=== PATIENT | female | born 2000 | race Two or more races ===

== ENCOUNTER 2024-07-18 11:39 | Outpatient (CLI) | payer MEDICAID, SELFPAY ==
[2024-07-18] VITALS (7 sets, daily range): BP systolic 110–112; BP diastolic 59–65; PULSE 106–113; O2SAT 97–99; BMI 29.6
--- NOTE | 2024-07-18 12:15 | XR_ITS ---
Examination: Biophysical profile, ultrasound Date and time of exam: July 18, 2024 1307 hours INDICATIONS: Decreased movement today Technique: Multiple transabdominal sonographic images of the pelvis abdomen obtained. Attention is directed to the breathing movement, gross body movement, amniotic fluid volume and tone. Findings: Amniotic fluid index 8.5 cm Total biophysical profile is 8 of 8. breathing movement is 2. Gross body movement is 2. tone is 2. Qualitative amniotic fluid volume is 2 Impression: Biophysical profile is 8 of 8.
== END 2024-07-18 15:00 | disposition home or self-care (01) ==
LOC: S4S1 11:40 → S4SX 11:41
PROVIDERS: Referring Provider Specialist; Visit Provider Specialist
DX: O36.8130 Decreased fetal movements, third trimester, not applicable or unspecified (principal); Z3A.38 38 weeks gestation of pregnancy
CPT/HCPCS: 59025; 76819

== ENCOUNTER 2024-07-21 05:37 | Inpatient (IN) | payer MEDICAID, SELFPAY ==
--- NOTE | 2024-07-14 12:45 | ESHP_ITS ---
RE: ROMEO BENNETT : 2000 DATE OF ADMISSION: 07/21/2024 HISTORY OF PRESENT ILLNESS: This is a 24-year-old 2, para 1-0-0-1 with due date of 07/28/2024 with intrauterine at 39 weeks on 07/21/2024, who presents for repeat delivery. The patient's care was complicated by anxiety disorder and sinus tachycardia for which the patient takes BuSpar and a beta-isauro in the form of metoprolol at 25 mg once a day. She has been seen by a coroner transport technician during her with no significant arrhythmia noted. She also has a history of elevated blood pressures in the office, but her home blood pressures are normal. She is not on any medication for blood pressure. She reports normal movement. She denies any leaking or bleeding. She has occasional contractions. ALLERGIES: NO KNOWN DRUG ALLERGIES. MEDICATIONS: 1. Metoprolol succinate ER 25 mg one p.o. daily. 2. Buspirone 5 mg one p.o. b.i.d. 3. Ferrous sulfate 325 mg one p.o. b.i.d. 4. vitamin 1 p.o. daily. PAST MEDICAL HISTORY: Anxiety disorder, inappropriate sinus tachycardia, endometriosis, white coat hypertension, rubella non-immune, diastasis recti, iron deficiency anemia. SOCIAL HISTORY: She denies any alcohol, drug use, or smoking. FAMILY HISTORY: Mother has diabetes and hypertension. OBSTETRIC HISTORY: On 07/26/2019, 40 weeks of serine delivery, 8 pound 1 ounce male for breech presentation. PAST SURGICAL HISTORY: 2019. REVIEW OF SYSTEMS: She denies any chest pain, palpitations, cough, fever, shortness of breath, or lower extremity pain. She denies any headache, change in vision, or right upper quadrant pain. PHYSICAL EXAMINATION: VITAL SIGNS: Blood pressure 138/72, heart rate 88, respirations 18, temperature 98.6. HEENT: Oropharynx and sclerae are clear. LUNGS: Clear to auscultation bilaterally. HEART: Regular rate and rhythm. ABDOMEN: Old Pfannenstiel scar noted. EXTREMITIES: Nontender. SKIN: No gross rashes or lesions. NEUROLOGIC: No focal deficits. ASSESSMENT: Intrauterine at 39 weeks. Previous delivery, elects to repeat delivery. PLAN: Repeat delivery. Informed consent was obtained. The patient has been made aware of the risks, complications, alternatives, and benefits of the proposed procedure and she agrees. DT: 12:24:08 TT: 12:44:00 Ref: [id number] - TID: [id number] MTDD
[2024-07-20 11:18] LABS: Basophils % (Auto) 0 % (0-2.5); Eosinophils # (Auto) 0.1 Thou/mm3 (0.0-0.5); Eosinophils % (Auto) 1 % (0-10); Hematocrit 38.6 % (36.0-46.0); Hemoglobin 12.7 g/dL (12.0-16.0); Immature Granulocytes % (Auto) 1 % (0-0); Immature Granulocytes Auto 0.08 Thou/mm3 (0.00-0.00); Lymphocytes # (Auto) 2.2 Thou/mm3 (1.0-4.8); Lymphocytes % (Auto) 17 % (10-50); Mean Corpuscular HGB Conc 32.9 g/dl (31.0-37.0); Mean Corpuscular Hemoglobin 29.9 pg (25.0-35.0); Mean Corpuscular Volume 91 fL (80-100); Monocytes # (Auto) 0.6 Thou/mm3 (0.0-0.8); Monocytes % (Auto) 5 % (0-12); Neutrophils # (Auto) 10.2 Thou/mm3 (1.8-7.7); Neutrophils % (Auto) 77 % (37-80); Nucleated Red Blood Cell % 0 /100 WBC (0); Platelet Count 211 Thou/mm3 (140-440); RDW Standard Deviation 45.1 fL (36.4-46.3); Red Blood Count 4.25 Miln/mm3 (4.00-5.20); White Blood Count 13.2 Thou/mm3 (3.6-11.0)
[2024-07-20 11:50] LABS: Alanine Aminotransferase 9 U/L (10-49); Albumin, Serum 4.3 gm/dL (3.5-5.0); Albumin/Globulin Ratio 1.8 (1.2-2.2); Alkaline Phosphatase 214 U/L (46-116); Anion Gap 10 (7-16); Aspartate Amino Transferase 13 U/L (0-34); BUN/Creatinine Ratio 14 Ratio (12-20); Bilirubin,Total 0.4 mg/dL (0.3-1.2); Blood Urea Nitrogen 7 mg/dL (9-23); Calcium 9.7 mg/dL (8.3-10.6); Calcium (Corrected) 9.7 mg/dL (8.5-10.1); Carbon Dioxide 23.8 mMol/L (20.0-31.0); Chloride 103 mMol/L (98-107); Creatinine (Component) 0.5 mg/dL (0.6-1.3); Globulin 2.4 gm/dL (2.3-3.5); Glucose 86 mg/dL (74-106); Osmolality,Calculated 270 (275-295); Potassium 3.9 mMol/L (3.4-5.1); Sodium 137 mMol/L (136-145); Total Protein 6.7 gm/dL (5.7-8.2); eGFR > 60 See Note
[2024-07-20 11:53] LABS: Syphilis Nonreactive (Nonreactive)
[2024-07-20 12:43] LABS: INR 0.9 (0.9-1.3); Partial Thromboplastin Time 23.6 Seconds (22.0-36.0)
[2024-07-21] VITALS (17 sets, daily range): BP systolic 98–133; BP diastolic 55–89; PULSE 78–115; RESP 10–19; TEMP 36.4–37.1; O2SAT 97–100; BMI 29.4
[2024-07-21] MEDS: CITRIC ACID/SODIUM CITR 15 ML UDC (BICITRA) 30 ML PO (07:09)
[2024-07-21] MEDS: ceFAZolin/D5W 2 GM IV 2 GM/100 ML BAG IV (07:09)
[2024-07-21] MEDS: FAMOTIDINE INJ 10 MG/ML VIAL 2 ML 20 MG IV (07:09)
--- NOTE | 2024-07-21 08:32 | PD.LDDELS ---
Data ([facility]) Data Hx Section: Yes (X1) : 2 Para: 1 Term: 1 : 0 : 0 Delivery Data ([facility]) Labor Data ROM Date: 07/21/24 ROM Time: 08:06 Rupture Type: AROM Amniotic Fluid: Clear Delivery Data EDC: 07/28/24 EDC calculated by:: LMP/early US confirmation Labor Onset Stage 1 Date: 07/21/24 Labor Onset Stage 1 Time: 08:06 Labor Onset Stage 2 Date: 07/21/24 Labor Onset Stage 2 Time: 08:06 Delivery Date: 07/21/24 Delivery Time: 08:06 Gestational age (weeks): 39 Gestational age (days): 0 Placenta Delivery Date: 07/21/24 Placenta Delivery Time: 08:07 Delivered by: Jose Sethi Delivery nurse: Shavon Rodriguez Other staff at delivery: Nursery Nurse Other staff at delivery: MESHA Other staff at delivery: Reva Wellington Other staff at delivery: Chirag More Delivery Method Delivery: Delivery Type: Repeat Presentation: Vertex Position: OA Anesthesia Type Primary Anesthesia: Spinal Placenta Placenta Delivery: Manual Placenta Cultures Obtained: No Placenta Sent for Examination: No Cord Sample: Cord Blood Obtained EBL Estimated blood loss (ml): 600 Additional Procedures None Complications Complications: Uterine atony Data ([facility]) [place] Data Gender: Male Infant Weight Grams: 2995 1 Minute Total: 9 5 Minute Total: 9
--- NOTE | 2024-07-21 08:36 | PD.LDDS ---
DS: Providers Provider Date of admission: 07/21/24 05:37 Primary care physician: Masood Kulkarni MD Admitting Provider: Jose Sethi MD Attending Provider on Admission: Jose Sethi MD Attending Provider on DC: Jose Sethi MD Discharging Provider: Jose Sethi MD DS: Diagnosis Problem List Completed Was Problem List Reviewed/Reconciled?: Yes Summary/Hosp Course Peripartum Data Procedures: Procedures Operation Date: 07/21/24 07:45 <No data on this case meets the specified criteria> Time Spent with Patient Time attestation: Total time spent providing and/or coordinating discharge services: Exam Vital Signs Pulse BP Pulse Ox 93 131/72 H 100 07/21/24 07:36 07/21/24 07:36 07/21/24 07:36 Discharge Plan Plan Patient Disposition: HOME (Self Care) Patient condition on transfer: Stable Prescriptions/Referrals Prescriptions/Med Rec: New ibuprofen 600 mg tablet 600 mg PO Q6H PRN (Reason: pain) Qty: 30 0RF Continued PNV cmb#95-ferrous fumarate-FA [] 28 mg iron- 800 mcg Tablet 1 tab PO QDAY buspirone 5 mg tablet 5 mg PO BID metoprolol succinate 25 mg capsule,sprinkle,ER 24hr 25 mg PO QDAY Qty: 30 6RF Discontinued ferrous sulfate 325 mg (65 mg iron) tablet 325 mg PO BID Qty: 60 5RF Referrals: Masood Kulkarni MD [Primary Care Provider] - Patient/Caregiver Discharge Instructions Discharge Activity: activity as tolerated Other Discharge Activity Instructions:: Follow up office 1 week Education Materials: Pain After Childbirth, Storing Expressed Milk, Breast Care After , : Caring for Yourself, C Section Dc Print Language: [place] Stand Alone Forms: Melissa Award Info., Patient Portal Info Letter Discharge Order Discharge Orders: Discharge (Routine); Ordered 07/23/24 Ordered By: Jose Sethi Planned Discharge Date 07/23/24
[2024-07-21] MEDS: DIPHENOXYLATE/ATROP SULF 1 TAB PO (08:57)
[2024-07-21] MEDS: KETOROLAC INJ 30 MG/ML VIAL IVP (10:40)
--- NOTE | 2024-07-21 12:21 | ESOP_ITS ---
RE: ROMEO BENNETT : 2000 DATE OF OPERATION: 07/21/2024 PREOPERATIVE DIAGNOSES: 1. Intrauterine at 39 weeks. 2. Previous delivery, elects repeat delivery. POSTOPERATIVE DIAGNOSES: 1. Intrauterine at 39 weeks. 2. Previous delivery, elects repeat delivery. 3. Endometriosis. PROCEDURE PERFORMED: Repeat low transverse section via Pfannenstiel skin incision. SURGEON: Jose Sethi DO PRODUCTION CORRUGATOR: SAMSON Gao ANESTHESIA: Spinal. ANESTHESIOLOGIST: Radha More CRNA ESTIMATED BLOOD LOSS: 600 mL COMPLICATIONS: Uterine atony. FINDINGS: A live male . Cephalic presentation. Clear amniotic fluid. Apgars 9 and 9. weight 2995 grams. Clear amniotic fluid. Superficial endometriotic implants on both ovaries and uterosacral ligaments. Placenta removed completely and intact. Uterus initially atonic but responded to uterotonics. DESCRIPTION OF PROCEDURE: After proper informed consent was obtained and the patient was made aware of the risks, complications, alternatives, benefits of the proposed procedure, she was taken to the operating room where she underwent induction of spinal anesthesia. She was placed in the dorsal supine position. She was prepped and draped in the usual sterile fashion. A time-out was performed. Pfannenstiel skin incision was made with scalpel carried through to the underlying layer of fascia with the Bovie. The fascia was nicked in the midline. Incision was extended bilaterally with the Bovie. The inferior aspect of the fascial incision was grasped with Nereida clamps and elevated. The underlying rectus muscle was dissected off with the Bovie. The rectus muscles were in the midline. The peritoneum was identified between two Otero clamps and entered sharply with the Metzenbaum scissors. The incision was extended superiorly and inferiorly with good visualization of the bladder. The bladder blade was then inserted. The vesicouterine peritoneum was incised transversely and bladder flap carried digitally. The bladder blade was reinserted. The low uterine segment was incised in the transverse fashion with scalpel. The incision was extended bilaterally and digitally. The infants head delivered. The mouth and nose were suctioned with bulb suction. Shoulder and body delivered atraumatically. The cord was clamped and cut and the sent out to waiting pediatric staff. Cord blood gases were sent. The placenta was then removed manually. The uterus exteriorized and cleared of all clots and debris. The uterus incision was repaired with 1-0 chromic suture in a running locking fashion. A second layer of same suture was used to imbricate the first layer and obtained excellent hemostasis. The vesicouterine peritoneum was closed with 2-0 chromic suture in running fashion. The uterus was atonic, but she responded to uterotonics. The fundus was firm. The gutters were cleared of all clots and debris and the peritoneum closed with 0 chromic catgut suture in running fashion. The muscle was closed with 0 chromic catgut suture in running fashion. The subfascial layer was found to be hemostatic and the fascia was closed with 0 Vicryl beginning at each angle and ending centered in a running fashion. Subcutaneous tissue was closed with 2-0 chromic catgut suture in a running fashion. Skin was closed with 4-0 Monocryl. Dermabond Prineo dressing was applied. Sterile pressure dressing was applied. She tolerated the procedure well. Counts were correct. Fundus was firm at the end of the procedure. She was hemodynamically stable. She was transferred to recovery room in stable condition. I discussed with the patient, the nature of her condition, the intraoperative findings, and expectation for recovery. All questions answered. DT: 08:35:04 TT: 12:20:00 Ref: [id number] - TID: [id number]
[2024-07-21 13:32] LABS: Basophils % (Auto) 0 % (0-2.5); Eosinophils % (Auto) 0 % (0-10); Hematocrit 37.1 % (36.0-46.0); Hemoglobin 12.4 g/dL (12.0-16.0); Immature Granulocytes % (Auto) 1 % (0-0); Immature Granulocytes Auto 0.09 Thou/mm3 (0.00-0.00); Lymphocytes # (Auto) 1.1 Thou/mm3 (1.0-4.8); Lymphocytes % (Auto) 6 % (10-50); Mean Corpuscular HGB Conc 33.4 g/dl (31.0-37.0); Mean Corpuscular Hemoglobin 30.2 pg (25.0-35.0); Mean Corpuscular Volume 90 fL (80-100); Monocytes # (Auto) 0.3 Thou/mm3 (0.0-0.8); Monocytes % (Auto) 1 % (0-12); Neutrophils # (Auto) 17.4 Thou/mm3 (1.8-7.7); Neutrophils % (Auto) 92 % (37-80); Nucleated Red Blood Cell % 0 /100 WBC (0); Platelet Count 217 Thou/mm3 (140-440); RDW Standard Deviation 43.9 fL (36.4-46.3); Red Blood Count 4.11 Miln/mm3 (4.00-5.20); White Blood Count 18.9 Thou/mm3 (3.6-11.0)
[2024-07-21] MEDS: OXYTOCIN in NS 20 units 20 UNIT/1,000 ML BAG 125 UNIT IV (14:09)
[2024-07-21] MEDS: ONDANSETRON INJ 2 MG/ML INJ 2 ML 4 MG IV (14:09)
[2024-07-21] MEDS: HYDROcodone/APAP 5/325 TABLET 2 TAB PO (19:46)
[2024-07-21] MEDS: BusPIRone HCL 5 MG TABLET PO (21:59)
[2024-07-22] VITALS (7 sets, daily range): BP systolic 104–113; BP diastolic 66–75; PULSE 80–96; RESP 15–18; TEMP 36.7–36.8; O2SAT 97–98
[2024-07-22] MEDS: IBUPROFEN TAB 400 MG TABLET 800 MG PO ×2 (05:40→14:25)
[2024-07-22] MEDS: HYDROcodone/APAP 5/325 TABLET 2 TAB PO ×3 (07:42→21:16)
[2024-07-22] MEDS: Milk Of Magnesia Susp 30 ML UDC PO (08:52)
[2024-07-22] MEDS: METOPROLOL SUCCINATE XL 25 MG TABCR PO (08:52)
[2024-07-22] MEDS: BusPIRone HCL 5 MG TABLET PO ×2 (08:53→21:15)
--- NOTE | 2024-07-22 09:39 | ESPR_ITS ---
RE: ROMEO BENNETT : 2000 DATE OF SERVICE: 07/22/2024 SUBJECTIVE: Postop day #1, the patient denies any problems or complaints. She is voiding. She is ambulating. She is tolerating diet. She is passing flatus. She denies any excessive vaginal bleeding. She denies any dizziness or lightheadedness. She denies any chest pain, palpitations, or shortness of breath or lower extremity pain. OBJECTIVE: Vitals Signs: Blood pressure 104/66, heart rate 91, respirations 15, temperature 98.1, pulse oximetry 97% on room air. Lungs: Clear to auscultation bilaterally. Heart: Regular rate and rhythm. Abdomen: Fundus is firm. Dressing is dry and intact. Extremities: Nontender. LABORATORY DATA: Hemoglobin pre-delivery is 12.7, post delivery is 12.4. ASSESSMENT: Postop day #1 status post delivery. PLAN: Remove dressing, discontinue IV, encourage ambulation, support, possible discharge home tomorrow. DT: 07:43:54 TT: 09:38:00 Ref: [id number] - TID: [id number]
[2024-07-23] VITALS: BP 109/70; PULSE 84; RESP 17; TEMP 36.8; O2SAT 98
[2024-07-23] MEDS: HYDROcodone/APAP 5/325 TABLET 2 TAB PO (03:37)
[2024-07-23 03:53] VITALS: BP 110/69; PULSE 100; RESP 18; TEMP 36.8; O2SAT 98
--- NOTE | 2024-07-23 03:55 | PC.NURSE ---
07/23/24 0345: pt educated on importance of walking frequently. Pain medication administered.
[2024-07-23] MEDS: HYDROcodone/APAP 5/325 TABLET 1 TAB PO (08:17)
[2024-07-23 08:18] VITALS: BP 117/79; PULSE 104
[2024-07-23] MEDS: BusPIRone HCL 5 MG TABLET PO ×2 (08:18)
[2024-07-23] MEDS: METOPROLOL SUCCINATE XL 25 MG TABCR PO (08:18)
--- NOTE | 2024-07-23 08:34 | ESPR_ITS ---
RE: ROMEO BENNETT : 2000 DATE OF SERVICE: 07/23/2024 SUBJECTIVE: Postoperative day #2, the patient denies any problem or complaint. She is voiding. She is ambulating. She is tolerating diet. She is passing flatus. She denies any excessive vaginal bleeding. She denies any dizziness or lightheadedness. She denies any chest pain, palpitations, shortness of breath, or lower extremity pain. OBJECTIVE: Vital Signs: Blood pressure 110/69, heart rate 100, respirations 18, temperature 98.2, pulse oximetry is 98% on room air. Lungs: Clear to auscultation bilaterally. Heart: Regular rate and rhythm. Abdomen: Fundus is firm. Incision clean and intact. Extremities: Nontender. ASSESSMENT: Postop day #2, status post delivery. PLAN: Continue beta-isauro for inappropriate sinus tachycardia. Follow up in the office in one week. Discharge instructions were given. DT: 08:18:11 TT: 08:33:00 Ref: [id number] - TID: [id number]
--- NOTE | 2024-07-23 11:32 | PC.SS ---
COMBINATION MACHINE TENDERMirian, met with patient [id number] to do initial assessment due to suffering from anxiety. COMBINATION MACHINE TENDER introduced herself, role in the agency, reason for visit, and discussed limits of confidentiality. Patient appeared alert and oriented to self, time, place, and situation. Patient appears stated age. Patient made good eye contact. Patient?s attitude appeared pleasant and cooperative. Patient?s behavior appeared ordinary. Patient?s mood appears ordinary. No signs of delusions or hallucinations. This is 24-year-old, , single female who presented to the hospital to deliver her . Patient was able to verify her address and phone number. Patient reported that she resides at home with her significant other, Kael. Patient is independent with all her ADLs, no DME use. Patient is employed by [employer]. Patient reported being diagnosed anxiety. Patient denies any history of suicide attempts, 5150 holds. Patient denied any current substance use. Patient declined any involvement with CWS. Patient declined any domestic violence at home. Patient reports feeling happy and excited to return home. Patient reports having all the equipment for the baby. Patient reported having her own vehicle for transportation. Patient reported that her fianceKael is her main support system. Patient will discharge home when medically clear. Patient declined any resources for counseling. YOSEF discussed with patient Post Depression, as well as symptoms.
== END 2024-07-23 11:55 | disposition home or self-care (01) | DRG 540 ==
LOC: S4SX 05:44 → S4NX 08:11
PROVIDERS: Admitting Provider Specialist; PCP Family Medicine; Visit Provider Specialist
PROC: 10D00Z1 Extraction of Products of Conception, Low, Open Approach (ICD-10-PCS; CPT 59514; principal; 2024-07-21 07:30)
DX: O34.211 Maternal care for low transverse scar from previous cesarean delivery (principal); O62.2 Other uterine inertia; Z37.0 Single live birth; Z3A.39 39 weeks gestation of pregnancy; O99.344 Other mental disorders complicating childbirth; F41.9 Anxiety disorder, unspecified; O99.42 Diseases of the circulatory system complicating childbirth; I47.11 Inappropriate sinus tachycardia, so stated; N80.103 Endometriosis of bilateral ovaries, unspecified depth; N80.8 Other endometriosis; O34.83 Maternal care for other abnormalities of pelvic organs, third trimester
CPT/HCPCS: 36415; 80053; 85025; 85610; 85730; 86780; 86850; 86900; 86901; A4649; J0689; J1100; J1885; J2250; J2274; J2371; J2405; J2590; J3010; J3490; S0191; A9270; J0690; J2270

== ENCOUNTER 2025-01-19 19:34 | Emergency (ER) | payer MEDICAID, SELFPAY ==
[2025-01-19 19:36] VITALS: BMI 20.9
--- NOTE | 2025-01-19 19:42 | EKG_ITS ---
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
[2025-01-19 19:49] VITALS: BP 150/95; PULSE 143; RESP 16; TEMP 38.1; O2SAT 98
--- NOTE | 2025-01-19 20:05 | XR_ITS ---
Examination: PA lateral chest 2 views Technique upright PA lateral chest 2 views Date and time: January 19, 20252022 hours INDICATIONS: Cardiac palpitations beginning 5:00 PM today fever coughing 3 days. FINDINGS: Normal heart size Lungs are clear No pneumonia or pulmonary edema Intact osseous structures IMPRESSION: No pneumonia or pulmonary edema
--- NOTE | 2025-01-19 20:06 | PD.EDARRY ---
ED Arrhythmia Palp. RME/HPI General Chief Complaint: Arrhythmia/Palpitations Stated Complaint: PALPITATIONS Time Seen by Provider: 01/19/25 20:01 Source: patient Arrival date/time: 01/19/25 19:34 74-year-old female with no known medical history presents to the emergency room with a chief complaint of palpitations, fevers, coughing, shortness of breath x 3 days Mode of arrival: ambulatory Limitations: no limitations Related Data Home Medications ?Medication ?Instructions ?Recorded ?Confirmed vit no.95-ferrous 1 tab PO QDAY 07/26/19 07/21/24 fumarate 28 mg-folic acid 800 mcg tablet () buspirone 5 mg tablet 5 mg PO BID anxiety 07/21/24 07/21/24 Previous Rx's ?Medication ?Instructions ?Recorded metoprolol succinate 25 mg capsule 25 mg PO QDAY #30 ea 04/19/24 sprinkle, ext. release 24 hr ibuprofen 600 mg tablet 600 mg PO Q6H PRN pain #30 tabs 07/21/24 Allergies Allergy/AdvReac Type Severity Reaction Status Date / Time No Known Allergies Allergy Verified 01/19/25 19:41 ED Exam General Limitations: Present no limitations Course Orders Category Date Time Status Bedside COVID-19 Antigen Test NOW Care 01/19/25 20:05 Active Bedside Influenza A&B Antigen Test NOW Care 01/19/25 20:05 Active EKG (ED ONLY) *Do not use* NOW Care 01/19/25 19:42 Completed Insert IV STAT Care 01/19/25 20:05 Active EKG (ED Only) Stat Exams 01/19/25 19:42 Draft XR chest 2V Stat Exams 01/19/25 20:05 Ordered BNP [B-Type Natriuretic Peptide] Stat Lab 01/19/25 20:06 Ordered Blood Culture (Lab) Stat Lab 01/19/25 20:05 Ordered CBC Stat Lab 01/19/25 20:05 Ordered CMP [Comprehensive Metabolic Panel] Stat Lab 01/19/25 20:05 Ordered Lactate (Lactic Acid) Stat Lab 01/19/25 20:05 Ordered Procalcitonin Stat Lab 01/19/25 20:05 Ordered Troponin I Stat Lab 01/19/25 20:05 Ordered UA [Urinalysis] Stat Lab 01/19/25 20:05 Ordered Urine Culture Stat Lab 01/19/25 20:05 Ordered Sodium Chloride 0.9% 1000 ml [Ns] 1,779 ml Med 01/19/25 20:05 Ordered IV 1,779 mls/hr Vital Signs Vital signs: Vital Signs Temperature 100.5 F H 01/19/25 19:49 Pulse Rate 143 H 01/19/25 19:49 Respiratory Rate 16 01/19/25 19:49 Blood Pressure 150/95 H 01/19/25 19:49 Pulse Oximetry (%) 98 01/19/25 19:49 Oxygen Delivery Method Room Air 01/19/25 19:49 Arrhythmia/Palpitations Medications / Prescriptions Medication administrations:: Medication Administration History Sodium Chloride (Ns) 1,779 mls @ 1,779 mls/hr 30 ml/kg infuse over 60 min (1779 ml) IV .Q1H ONE Stop: 01/19/25 21:04 Discharge Plan Prescriptions/Referrals Prescriptions/Med Rec: No Action PNV cmb#95-ferrous fumarate-FA [] 28 mg iron- 800 mcg Tablet 1 tab PO QDAY buspirone 5 mg tablet 5 mg PO BID ibuprofen 600 mg tablet 600 mg PO Q6H PRN (Reason: pain) Qty: 30 0RF metoprolol succinate 25 mg capsule,sprinkle,ER 24hr 25 mg PO QDAY Qty: 30 6RF Patient/Caregiver Discharge Instructions Print Language: Romansh
[2025-01-19] MEDS: SODIUM CHLORIDE 0.9% 1000 ML 1,779 ML 1779 ML IV (20:34)
[2025-01-19 21:36] LABS: Collection Type, Urine Clean Catch
[2025-01-19 21:38] LABS: Basophils % (Auto) 1 % (0-2.5); Eosinophils # (Auto) 0.1 Thou/mm3 (0.0-0.5); Eosinophils % (Auto) 1 % (0-10); Hematocrit 37.4 % (36.0-46.0); Hemoglobin 12.8 g/dL (12.0-16.0); Immature Granulocytes % (Auto) 0 % (0-0); Immature Granulocytes Auto 0.01 Thou/mm3 (0.00-0.00); Lactate (Lactic Acid) 2.4 mMol/L (0.4-2.0); Lymphocytes # (Auto) 1.2 Thou/mm3 (1.0-4.8); Lymphocytes % (Auto) 20 % (10-50); Mean Corpuscular HGB Conc 34.2 g/dl (31.0-37.0); Mean Corpuscular Hemoglobin 28.4 pg (25.0-35.0); Mean Corpuscular Volume 83 fL (80-100); Monocytes # (Auto) 0.5 Thou/mm3 (0.0-0.8); Monocytes % (Auto) 8 % (0-12); Neutrophils # (Auto) 4.5 Thou/mm3 (1.8-7.7); Neutrophils % (Auto) 71 % (37-80); Nucleated Red Blood Cell % 0 /100 WBC (0); Platelet Count 189 Thou/mm3 (140-440); RDW Standard Deviation 39.2 fL (36.4-46.3); White Blood Count 6.4 Thou/mm3 (3.6-11.0)
[2025-01-19 21:43] LABS: Bilirubin,Urine Negative (Negative); Blood,Urine 2+ (Negative); Clarity,Urine Clear (Clear/Hazy); Color,Urine Colorless (Lt Yel-Yel); Glucose, Urine Negative (Negative); Ketones,Urine Negative (Negative); Leukocyte Esterase,Urine Negative (Negative); Nitrite,Urine Negative (Negative); PH,Urine 6.5 (5.0-7.0); Protein,Urine Negative (Neg - Trace); RBC,Urine 2 /hpf (0-3); Specific Gravity,Urine 1.008 (1.001-1.035); Squamous Epithelial Cell,Urine 1 /hpf (0-5); Urobilinogen,Urine Negative mg/dL (0.0-1.0); WBC,Urine 1 /hpf (0-5)
[2025-01-19 21:58] LABS: B-Type Natriuretic Peptide < 20 pg/mL (0-100)
[2025-01-19 22:06] LABS: Alanine Aminotransferase 19 U/L (10-49); Albumin, Serum 4.4 gm/dL (3.5-5.0); Albumin/Globulin Ratio 1.8 (1.2-2.2); Alkaline Phosphatase 100 U/L (46-116); Anion Gap 14 (7-16); BUN/Creatinine Ratio 8 Ratio (12-20); Bilirubin,Total 0.4 mg/dL (0.3-1.2); Blood Urea Nitrogen < 5 mg/dL (9-23); Calcium 8.5 mg/dL (8.3-10.6); Calcium (Corrected) 8.5 mg/dL (8.5-10.1); Carbon Dioxide 19.5 mMol/L (20.0-31.0); Chloride 111 mMol/L (98-107); Creatinine (Component) 0.6 mg/dL (0.6-1.3); Estimated Creatinine Clearance 132.3 mL/min (>60); Globulin 2.4 gm/dL (2.3-3.5); Glucose 98 mg/dL (74-106); Osmolality,Calculated 284 (275-295); Potassium 3.7 mMol/L (3.4-5.1); Procalcitonin 0.04 ng/ml (0.0-0.49); Sodium 144 mMol/L (136-145); Total Protein 6.8 gm/dL (5.7-8.2); Troponin I < 0.002 ng/mL (0.0-0.045); eGFR > 60 See Note
[2025-01-19 22:15] VITALS: BP 139/93; PULSE 125; RESP 16; TEMP 37.7; O2SAT 99
--- NOTE | 2025-01-19 22:32 | XR_ITS ---
Examination: CTA chest with intravenous contrast 2-D reconstructions 3-D reconstructions, vascular Date and time of exam: January 19, 2025 at 11:26 PM INDICATIONS: Dextrocardia today CTDI: vol (mGy) 17 DLP: (mGycm) 400 Technique: Multiple axial sections of the thorax have been obtained. 3 mm slice thickness, from below the hemidiaphragms to above the apices of the lungs. Mediastinal and lung density settings have been obtained. 2-D sagittal and coronal reconstructions. 3-D angiographic renderings, 3-D volume renderings, 3D post processing, vascular maximum intensity projections obtained. Contrast administered is 95 cc Isovue 370. Low dose protocols were performed. One or more of the following dose reduction techniques were used; automated exposure control, adjustment of the mA and/or KV according to patient size, use of iterative reconstruction technique. Findings: No thoracic aortic aneurysm dilatation Pulmonary artery opacification is poor No pulmonary artery filling defects noted No pneumonia or pulmonary edema No visualized liver or splenic lesion No gallstones No pancreatic or adrenal mass IMPRESSION: No thoracic aortic aneurysmal dilatation Pulmonary artery opacification is poor, contrast bolus timing error, repeat this study in 12 hours as clinically warranted No pneumonia or pulmonary edema
--- NOTE | 2025-01-19 22:34 | EDRME_ITS ---
Rapid Medical Screening Exam RME Arrival date/time: 01/19/25 19:34 24-year-old female with no known medical history presents to the emergency room with a chief complaint of palpitations, fevers, coughing, shortness of breath x 3 days I have greeted and performed a focused initial assessment of this patient. A co mprehensive ED assessment and evaluation of the patient, analysis of all test results, and completion of the medical decision making process will be conducted by additional ED providers. Chief Complaint: Arrhythmia/Palpitations Time Seen by Provider: 01/19/25 20:01 Vital signs: Vital Signs Temperature 100.5 F H 01/19/25 19:49 Pulse Rate 143 H 01/19/25 19:49 Respiratory Rate 16 01/19/25 19:49 Blood Pressure 150/95 H 01/19/25 19:49 Pulse Oximetry (%) 98 01/19/25 19:49 Oxygen Delivery Method Room Air 01/19/25 19:49 Vital signs reviewed by provider: Yes
--- NOTE | 2025-01-19 22:39 | EDNOTE_ITS ---
ED Arrhythmia Palp. RME/HPI General Chief Complaint: Arrhythmia/Palpitations Stated Complaint: PALPITATIONS Time Seen by Provider: 01/19/25 20:01 Arrival date/time: 01/19/25 19:34 RME / HPI RME / HPI narrative: 01/19/25 19:34 24-year-old female with no known medical history presents to the emergency room with a chief complaint of palpitations, fevers, coughing, shortness of breath x 3 days I have greeted and performed a focused initial assessment of this patient. A comprehensive ED assessment and evaluation of the patient, analysis of all test results, and completion of the medical decision making process will be conducted by additional ED providers. This section includes all my notes and documentations, including HPI, PE, and ED course. Arvind Ba MD HPI: 24 y/o female with Hx of Anxiety presents to ED c/o heart palpitations, subjective fever, nonproductive cough, and dyspnea x several days. No chest pain. No syncope or near syncope. No other complaints. ROS: All negative except as documented in HPI. Physical Exam: General:? Alert and oriented.? Hacking cough noted. Eyes:? Conjunctivae and lids clear.? ENT:? No nasal congestion.? Pharynx normal.? Tympanic membrane normal bilaterally.??? Neck:? Supple.? No JVD.?? Heart: Sinus tachycardia noted. Lungs:? No respiratory distress.? Good air movement with rhonchi. Abdomen:? Soft and nontender.? Back:? No CVA tenderness.?? Legs:? No clubbing, cyanosis, edema.? Skin:? Warm and dry.?? Neuro:? Alert and oriented X 3.? I reviewed all diagnostic test results: My interpretation of the EKG is sinus tachycardia with no acute ST?T changes. My interpretation of the chest x-ray is: NAD. My review of the Chest CTA report is NAD. Blood tests and urine tests unremarkable. Covid/Influenza/RSV/strep negative. At this point, diagnoses include: Lower Respiratory Infection, Anxiety Treatment here included: Tylenol, Toradol, SoluMedrol, Metoprolol, IV fluid, and DuoNeb. Significant improvement noted. Recommended outpatient management. Based on my best medical judgment, made decision no further evaluation or treatment indicated at this time. Patient understands and agrees to the discharge instructions customized and printed, see below. Discharge instructions from Dr. Ba: --After extensive evaluation, there is no life-threatening condition. Such as heart attack or blood clots in your lungs. --But your diagnoses include bronchitis and anxiety and tachycardia. --No physical exertion for 3 days to help rest the lungs. ?No smoking or exposure to smoking or pets or dust or cold or humidity. --Zithromax to kill the germs causing the bronchitis. --Albuterol 2 puffs every 4-6 hours as needed for cough or shortness of breath. --Take metoprolol 25 mg 2X daily scheduled. Will help slow your heart rate and anxiety. You will live longer with lower BP and slower heart rate. --Xanax as needed for severe anxiety. Avoid taking more than 2-3 times per week to prevent dependence on the medication. --See a private doctor on 01/22/2025 for recheck and further care. Ask to review all test results and official radiology reports, to make sure you receive all necessary follow-ups and monitoring. To make sure there is no serious underlying heart condition, ask to help you get more tests for your heart that cannot be done here in the ER. Such as Holter Monitor (cardiac monitoring at home from a day to even a month), heart stress test (on treadmill or with medication), echocardiogram (imaging of your heart structures), heart catherization (checking for blockages in your heart arteries), and a referral to see a Senior Ui U[employer] Developer. --Seek immediate medical care with worsening or with any concerns. Arvind Ba MD Related Data Home Medications ?Medication ?Instructions ?Recorded ?Confirmed vit no.95-ferrous 1 tab PO QDAY 07/26/1902/06 fumarate 28 mg-folic acid 800 mcg tablet () buspirone 5 mg tablet 5 mg PO BID anxiety 07/21/24 07/21/24 Previous Rx's ?Medication ?Instructions ?Recorded metoprolol succinate 25 mg capsule 25 mg PO QDAY #30 e a 04/19/24 sprinkle, ext. release 24 hr ibuprofen 600 mg tablet 600 mg PO Q6H PRN pain #30 t abs 07/21/24 albuterol sulfate 90 mcg/actuation 2 puff inhalation Q 6H PRN 01/20/25 aerosol inhaler shortness of breath or wheez ing #8.5 grams alprazolam 0.5 mg tablet (Xanax) 0.5 mg PO BID PRN anx iety #20 tabs 01/20/25 azithromycin 500 mg tablet 500 mg PO QDAY 3 days #3 ta bs 01/20/25 (Zithromax TRI-SAMAN) metoprolol succinate 25 mg 25 mg PO BID #60 tabs 01/20 tablet,extended release 24 hr Allergies Allergy/AdvReac Type Severity Reaction Status Date / Time No Known Allergies Allergy Verified 01/19/25 19:41 Review of Systems Review of Systems Systems Reviewed: All systems reviewed, normal except as documented Past Medical History Past Medical History CARDIAC: Positive Cardiac Disorders (ELEVATED HR- TAKES PO METOPROLOL.) GASTROINTESTINAL: Positive Gastrointestinal Disorders (CONSTIPATION.) REPRODUCTIVE: Positive Previous Pregnancies (X1) PSYCHO/SOCIAL: Positive Anxiety (TAKES BUSPIRONE.) OTHER HISTORY: Positive Hospitalization Surgical History SURGICAL: Positive Section (X1) ED Exam Narrative Physical exam: Refer to HPI Course Course Course Narrative: CXR is ordered for determining the etiology of shortness of breath. Quality Measures none Orders Category Date Time Status Bedside COVID-19 Antigen Test NOW Care 01/19/25 20:05 Active Bedside Influenza A&B Antigen Test NOW Care 01/19/25 20:[address] Screening NOW Care 01/19/25 22:32 Active EKG (ED ONLY) *Do not use* NOW Care 01/19/25 19:42 Completed Insert IV STAT Care 01/19/25 20:[address] angio chest Stat Exams 01/19/25 22:32 Ordered EKG (ED Only) Stat Exams 01/19/25 19:42 Draft XR chest 2V Stat Exams 01/19/25 20:05 Completed BNP [B-Type Natriuretic Peptide] Stat Lab 01/19/25 21:27 Completed Blood Culture (Lab) Stat Lab 01/19/25 21:20 Received CBC Stat Lab 01/19/25 21:27 Completed CMP [Comprehensive Metabolic Panel] Stat Lab 01/19/25 21:27 Completed D-Dimer Stat Lab 01/19/25 22:33 Ordered Lactate (Lactic Acid) Stat Lab 01/19/25 21:27 Results Procalcitonin Stat Lab 01/19/25 21:27 Completed RSV [Respiratory Syncytial Virus Ag] Stat Lab 01/19/25 22:35 Ordered Strep A Rapid Stat Lab 01/19/25 22:35 Ordered Troponin I Stat Lab 01/19/25 21:27 Completed UA [Urinalysis] Stat Lab 01/19/25 21:26 Completed Urine Culture Stat Lab 01/19/25 21:26 Received Albuterol/Ipratr Rt Cony [Duoneb Rt Cony] Med 01/19/25 22:33 Once 3 ml INH X1 ONE MethylPREDNISolone.* [SoluMEDROL Inj] Med 01/19/25 22:33 Once 125 mg IVP X1 ONE Metoprolol Tartrate [Lopressor] Med 01/19/25 22:35 Once 25 mg PO X1 ONE Sodium Chloride 0.9% 1000 ml [Ns] 1,000 ml Med 01/19/25 22:35 Ordered IV 999 mls/hr Sodium Chloride 0.9% 1000 ml [Ns] 1,779 ml Med 01/19/25 20:05 Discontinued IV 1,779 mls/hr Vital Signs Vital signs: Vital Signs Temperature 100.5 F H 01/19/25 19:49 Pulse Rate 143 H 01/19/25 19:49 Respiratory Rate 16 01/19/25 19:49 Blood Pressure 150/95 H 01/19/25 19:49 Pulse Oximetry (%) 98 01/19/25 19:49 Oxygen Delivery Method Room Air 01/19/25 19:49 Arrhythmia/Palpitations MDM Narrative MDM Narrative:: Scribe Attestation: IDilcia, geo scribing for and in the presence of Dr. Ba. Provider Notation: Although this document has been carefully reviewed, there may still be some phonetic and other typographical errors.? These errors are purely grammatical due to imperfections in the software program and should not be construed in any way to? compromise the substance of the patient's medical care during this visit. 24 y/o female with Hx of Anxiety presents to ED c/o heart palpitations, fevers, coughing, shortness of breath x 3 days. No other complaints. Patient data External records reviewed:: [facility] previous records (Reviewed prior ED records from 04/18/24. Patient was seen for Fever.) Clinical information provided by:: patient Social determinants that could affect healthcare access:: none Patient has the following chronic illnesses:: Anxiety, Constipation How is presenting disease/condition affected by chronic disease/condition?: exacerbated by Evaluation data The following diagnostics were reviewed and interpreted by me:: lab results, rad iology exam(s) and EKG tracing(s) Lab and/or radiology exams considered but not ordered:: None Interpretation Summary: I reviewed all diagnostic test results: My interpretation of the EKG is sinus tachycardia with no acute ST?T changes. My interpretation of the chest x-ray is: NAD. My review of the Chest CTA report is NAD. Blood tests and urine tests unremarkable. Covid/Influenza/RSV/strep negative. Medications / Prescriptions Medications or Prescriptions considered but not ordered:: None Medication administrations:: Medication Administration History Albuterol/Ipratropium (Albuterol/Ipratropium (Duoneb) Rt Cony 3 Ml Nebu) 3 ml INH X1 ONE Stop: 01/19/25 22:34 Sodium Chloride (Ns) 1,000 mls @ 999 mls/hr IV .Q1H1M ONE Stop: 01/19/25 23:35 Methylprednisolone Sodium Succinate (Methylprednisolone Sod Succ 62.5 Mg/Ml 2ml Vial) 125 mg IVP X1 ONE Stop: 01/19/25 22:34 Metoprolol Tartrate (Metoprolol Tartrate 25 Mg Tablet) 25 mg PO X1 ONE Stop: 01/19/25 22:36 Discontinued Medications Sodium Chloride (Ns) 1,779 mls @ 1,779 mls/hr 30 ml/kg infuse over 60 min (1779 ml) IV .Q1H ONE Stop: 01/19/25 21:04 Last Admin: 01/19/25 20:34 Dose: 1,779 mls/hr Documented By: Consultations Consultation(s) initiated? (list below): No Diagnosis Differential diagnosis arrhythmia/palpitations: palpitations, anxiety, sinus tachycardia, artial fibrillation, artial flutter, ventricular premature beats, supraventricular tachycardia, ventricular tachycardia and WPW Most likely diagnosis given after review of the tests above:: Lower Respiratory Infection, Anxiety Admission Indicated Admission indicated?: not indicated Explain why admission is indicated or not indicated:: With significant improvement, there was no indication for admission.? Admission Request Was there a request for admission?: No Disposition Plan Disposition Plan: Discharge Discharge Attestation Discharge Attestation: The patient and all family members were given an opportunity to ask questions and understood the discharge instructions. Discharge instructions specifically effects, indications for sooner follow up or return to the emergency department, and the expected course of current diagnosis. Patient condition: Stable Discharge Plan Plan Patient Disposition: HOME (Self Care) Prescriptions/Referrals Prescriptions/Med Rec: New alprazolam [Xanax] 0.5 mg tablet 0.5 mg PO BID PRN (Reason: anxiety) Qty: 20 0RF metoprolol succinate 25 mg tablet extended release 24 hr 25 mg PO BID Qty: 60 0RF albuterol sulfate 90 mcg/actuation HFA aerosol inhaler 2 puff inhalation Q6H PRN (Reason: shortness of breath or wheezing) Qty: 8.5 0RF azithromycin [Zithromax TRI-SAMAN] 500 mg tablet 500 mg PO QDAY 3 Days Qty: 3 0RF No Action PNV cmb#95-ferrous fumarate-FA [] 28 mg iron- 800 mcg Tablet 1 tab PO QDAY buspirone 5 mg tablet 5 mg PO BID ibuprofen 600 mg tablet 600 mg PO Q6H PRN (Reason: pain) Qty: 30 0RF metoprolol succinate 25 mg capsule,sprinkle,ER 24hr 25 mg PO QDAY Qty: 30 6RF Referrals: Marleny Pederson PA-C [Primary Care Provider] - In 1 week Problem List Clinical Impression: Lower respiratory infection, Anxiety Patient/Caregiver Discharge Instructions Discharge Activity: activity as tolerated Education Materials: ED Anxiety Reaction, ED Bronchitis with Wheezing (Adult) Additional Instructions: Discharge instructions from Dr. Ba: --After extensive evaluation, there is no life-threatening condition. Such as heart attack or blood clots in your lungs. --But your diagnoses include bronchitis and anxiety and tachycardia. --No physical exertion for 3 days to help rest the lungs. ?No smoking or exposure to smoking or pets or dust or cold or humidity. --Zithromax to kill the germs causing the bronchitis. --Albuterol 2 puffs every 4-6 hours as needed for cough or shortness of breath. --Take metoprolol 25 mg 2X daily scheduled. Will help slow your heart rate and anxiety. You will live longer with lower BP and slower heart rate. --Xanax as needed for severe anxiety. Avoid taking more than 2-3 times per week to prevent dependence on the medication. --See a private doctor on 01/22/2025 for recheck and further care. Ask to review all test results and official radiology reports, to make sure you receive all necessary follow-ups and monitoring. To make sure there is no serious underlying heart condition, ask to help you get more tests for your heart that cannot be done here in the ER. Such as Holter Monitor (cardiac monitoring at home from a day to even a month), heart stress test (on treadmill or with medication), echocardiogram (imaging of your heart structures), heart catherization (checking for blockages in your heart arteries), and a referral to see a Senior Ui [employer] Developer. --Seek immediate medical care with worsening or with any concerns. Print Language: Azerbaijani Stand Alone Forms: Melissa Award Info., Patient Portal Info Letter
[2025-01-19 23:11] LABS: D-Dimer 418 ng/mL (<600)
[2025-01-19] MEDS: ALBUTEROL/IPRATROPIUM (Duoneb) RT SOL 3 ML NEBU INH (23:44)
[2025-01-19 23:47] VITALS: PULSE 142; RESP 20; O2SAT 99
[2025-01-19] MEDS: SODIUM CHLORIDE 0.9% 1000 ML 1,000 ML 999 ML IV (23:50)
[2025-01-19 23:55] VITALS: BP 139/93; PULSE 142
[2025-01-19] MEDS: METOPROLOL TARTRATE 25 MG TABLET PO (23:55)
[2025-01-20] MEDS: LORazepam 2 MG/ML VIAL 0.75 MG IVP (00:25)
[2025-01-20] MEDS: MethylPREDNISolone SOD SUCC 62.5 MG/ML 2ML VIAL 125 MG IVP (00:27)
[2025-01-20 00:32] LABS: Reflex Lactate? Y
[2025-01-20 01:13] VITALS: TEMP 37.7
[2025-01-20] MEDS: ACETAMINOPHEN 325 MG TABLET 650 MG PO (01:13)
[2025-01-20 01:18] LABS: Lactic Acid, 3 HR 2.7 mMol/L (0.4-2.0)
[2025-01-20 01:35] LABS: Respiratory Syncytial Virus Ag Negative (Negative)
[2025-01-20 01:36] LABS: Strep A Rapid Negative (Negative)
[2025-01-20 01:50] VITALS: PULSE 100; RESP 14; TEMP 37; O2SAT 99
[2025-01-20 02:15] VITALS: TEMP 37
== END 2025-01-20 01:50 | disposition home or self-care (01) ==
PROVIDERS: Nurse Practitioner Family; Emergency Provider Emergency Medicine; PCP Physician Assistant Medical
DX: J22 Unspecified acute lower respiratory infection (principal); F41.9 Anxiety disorder, unspecified; R00.0 Tachycardia, unspecified
CPT/HCPCS: 36415; 71046; 71275; 80053; 81001; 83605; 83880; 84145; 84484; 85025; 85379; 87040; 87086; 87400; 87634; 87651; 87811; 93005; 94640; 96360; 96361; 96374; 96375; 99285; A4649; A9270; J2060; J2919; J7030; Q9967

== ENCOUNTER 2025-01-21 01:32 | Emergency (ER) | payer MEDICAID, SELFPAY ==
[2025-01-21 01:34] VITALS: BMI 26.5
[2025-01-21 01:41] VITALS: BP 142/90; PULSE 121; RESP 18; TEMP 37.2; O2SAT 99
--- NOTE | 2025-01-21 01:41 | EKG_ITS ---
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
--- NOTE | 2025-01-21 01:58 | EDNOTE_ITS ---
ED Arrhythmia Palp. RME/HPI General Chief Complaint: Arrhythmia/Palpitations Stated Complaint: PALPITATIONS Time Seen by Provider: 01/21/25 02:38 Arrival date/time: 01/21/25 01:32 RME / HPI RME / HPI narrative: This section includes all my notes and documentations, including HPI, PE, and ED course. Arvind Ba MD HPI: 24 y/o female with Hx of Anxiety presents with severe palpitations just prior to arrival. She also reports intense fear, sweating, chills, shaking, trouble breathing, chest pain, stomach pain, nausea, numbness and tingling in the hands and feet and face, confusion, hot flashes, and feeling faint. No other complaints. ROS: All negative except as documented in HPI. Physical Exam: General: Alert and oriented. Appears very anxious. Eyes: Conjunctivae and lids clear. ENT: No nasal congestion. Neck: Supple. Heart: RRR. Lungs: No respiratory distress. Good air movement. No rhonchi, wheezing, rales. Skin: Warm and dry. Neuro: Alert and oriented X 3. I reviewed all diagnostic test results: My interpretation of the EKG is: Sinus tachycardia (115 bpm) with nonspecific ST-T changes. Blood tests unremarkable. At this point, diagnoses include: Anxiety. Treatment here included: Xanax, Lopressor. Significant improvement noted. Recommended more outpatient cardiac workup. Based on my best medical judgment, made decision no further evaluation or treatment indicated at this time. Patient understands and agrees to the discharge instructions customized and printed, see below. Discharge instructions from Dr. Ba: 1. After extensive evaluation, there is no life-threatening condition.? Such as heart attack. 2. Your symptoms may be due to underlying stress or anxiety or nerves.? 3. Take Xanax 0.5 mg (two pills) at a time as needed. Take metoprolol 25 mg (two pills) at a time twice daily. 4. See a private doctor on 01/22/2025 for recheck and further care. To make sure there is no serious underlying heart condition, ask to help you get more tests for your heart that cannot be done here in the ER.? Such as Holter Monitor (cardiac monitoring at home from a day to even a month), heart stress test (on treadmill or with medication), echocardiogram (imaging of your heart structures), heart catherization (checking for blockages in your heart arteries), and a referral to see a Colorist Formulator. 5. Seek immediate medical care with worsening or with any concerns.?? Arvind Ba MD Related Data Home Medications ?Medication ?Instructions ?Recorded ?Confirmed vit no.95-ferrous 1 tab PO QDAY 07/26/1902/06 fumarate 28 mg-folic acid 800 mcg tablet () buspirone 5 mg tablet 5 mg PO BID anxiety 07/21/24 07/21/24 Previous Rx's ?Medication ?Instructions ?Recorded metoprolol succinate 25 mg capsule 25 mg PO QDAY #30 e a 04/19/24 sprinkle, ext. release 24 hr ibuprofen 600 mg tablet 600 mg PO Q6H PRN pain #30 t abs 07/21/24 albuterol sulfate 90 mcg/actuation 2 puff inhalation Q 6H PRN 01/20/25 aerosol inhaler shortness of breath or wheez ing #8.5 grams alprazolam 0.5 mg tablet (Xanax) 0.5 mg PO BID PRN anx iety #20 tabs 01/20/25 azithromycin 500 mg tablet 500 mg PO QDAY 3 days #3 ta bs 01/20/25 (Zithromax TRI-SAMAN) metoprolol succinate 25 mg 25 mg PO BID #60 tabs 01/20 tablet,extended release 24 hr Allergies Allergy/AdvReac Type Severity Reaction Status Date / Time No Known Allergies Allergy Verified 01/19/25 19:41 Review of Systems Review of Systems Systems Reviewed: All systems reviewed, normal except as documented Past Medical History Past Medical History CARDIAC: Positive Cardiac Disorders (ELEVATED HR- TAKES PO METOPROLOL.) GASTROINTESTINAL: Positive Gastrointestinal Disorders (CONSTIPATION.) REPRODUCTIVE: Positive Previous Pregnancies (X1) PSYCHO/SOCIAL: Positive Anxiety (TAKES BUSPIRONE.) OTHER HISTORY: Positive Hospitalization Surgical History SURGICAL: Positive Section (X1) ED Exam Narrative Physical exam: Refer to [facility] Course Quality Measures none Orders Category Date Time Status EKG (ED ONLY) *Do not use* NOW Care 01/21/25 01:42 Completed EKG (ED Only) Stat Exams 01/21/25 01:41 Draft Vital Signs Vital signs: Vital Signs Temperature 98.9 F 01/21/25 01:41 Pulse Rate 121 H 01/21/25 01:41 Respiratory Rate 18 01/21/25 01:41 Blood Pressure 142/90 H 01/21/25 01:41 Pulse Oximetry (%) 99 01/21/25 01:41 Oxygen Delivery Method Room Air 01/21/25 01:41 Arrhythmia/Palpitations MDM Narrative MDM Narrative:: Scribe Attestation: IDilcia, am scribing for and in the presence of Dr. Ba. Provider Notation: Although this document has been carefully reviewed, there may still be some phonetic and other typographical errors.? These errors are purely grammatical due to imperfections in the software program and should not be construed in any way to? compromise the substance of the patient's medical care during this visit. 24 y/o female with Hx of Anxiety presents with continued heart palpitations x several days. Patient was seen yesterday for similar symptoms. No other complaints. Patient data External records reviewed:: [facility] previous records (Reviewed prior ED records from 01/19/25. Patient was seen for Anxiety.) Clinical information provided by:: patient Social determinants that could affect healthcare access:: mental health (Anxiety) Patient has the following chronic illnesses:: Anxiety How is presenting disease/condition affected by chronic disease/condition?: exacerbated by Evaluation data The following diagnostics were reviewed and interpreted by me:: lab results and EKG tracing(s) (My interpretation of the EKG is: Sinus tachycardia (115 bpm) with nonspecific ST-T changes. Arvind Ba MD) Lab and/or radiology exams considered but not ordered:: None Interpretation Summary: I reviewed all diagnostic test results: My interpretation of the EKG is: Sinus tachycardia (115 bpm) with nonspecific ST-T changes. Blood tests unremarkable. Medications / Prescriptions Medications or Prescriptions considered but not ordered:: None Medication administrations:: Xanax, Lopressor Consultations Consultation(s) initiated? (list below): No Diagnosis Differential diagnosis arrhythmia/palpitations: palpitations, anxiety, sinus tachycardia, artial fibrillation, artial flutter, ventricular premature beats, supraventricular tachycardia, ventricular tachycardia and WPW Most likely diagnosis given after review of the tests above:: Anxiety Admission Indicated Admission indicated?: not indicated Explain why admission is indicated or not indicated:: With significant improvement, there was no indication for admission. Admission Request Was there a request for admission?: No Disposition Plan Disposition Plan: Discharge Discharge Attestation Discharge Attestation: The patient and all family members were given an opportunity to ask questions and understood the discharge instructions. Discharge instructions specifically effects, indications for sooner follow up or return to the emergency department, and the expected course of current diagnosis. Patient condition: Stable Discharge Plan Plan Patient Disposition: HOME (Self Care) Prescriptions/Referrals Prescriptions/Med Rec: No Action PNV cmb#95-ferrous fumarate-FA [] 28 mg iron- 800 mcg Tablet 1 tab PO QDAY buspirone 5 mg tablet 5 mg PO BID ibuprofen 600 mg tablet 600 mg PO Q6H PRN (Reason: pain) Qty: 30 0RF alprazolam [Xanax] 0.5 mg tablet 0.5 mg PO BID PRN (Reason: anxiety) Qty: 20 0RF metoprolol succinate 25 mg tablet extended release 24 hr 25 mg PO BID Qty: 60 0RF albuterol sulfate 90 mcg/actuation HFA aerosol inhaler 2 puff inhalation Q6H PRN (Reason: shortness of breath or wheezing) Qty: 8.5 0RF azithromycin [Zithromax TRI-SAMAN] 500 mg tablet 500 mg PO QDAY 3 Days Qty: 3 0RF metoprolol succinate 25 mg capsule,sprinkle,ER 24hr 25 mg PO QDAY Qty: 30 6RF Referrals: Marleny Pederson PA-C [Primary Care Provider] - In 1 week Problem List Clinical Impression: Palpitation Patient/Caregiver Discharge Instructions Discharge Activity: activity as tolerated Education Materials: ED Anxiety Reaction, ED Panic Attack Additional Instructions: Discharge instructions from Dr. Ba: 1. After extensive evaluation, there is no life-threatening condition.? Such as heart attack. 2. Your symptoms may be due to underlying stress or anxiety or nerves.? 3. Take Xanax 0.5 mg (two pills) at a time as needed. Take metoprolol 25 mg (two pills) at a time twice daily. 4. See a private doctor on 01/22/2025 for recheck and further care. To make sure there is no serious underlying heart condition, ask to help you get more tests for your heart that cannot be done here in the ER.? Such as Holter Monitor (cardiac monitoring at home from a day to even a month), heart stress test (on treadmill or with medication), echocardiogram (imaging of your heart structures), heart catherization (checking for blockages in your heart arteries), and a referral to see a Colorist Formulator. 5. Seek immediate medical care with worsening or with any concerns.?? Print Language: Sudanese Stand Alone Forms: Melissa Award Info., Patient Portal Info Letter
[2025-01-21 02:47] VITALS: BP 133/82; PULSE 110
[2025-01-21] MEDS: METOPROLOL TARTRATE 25 MG TABLET 50 MG PO (02:47)
[2025-01-21] MEDS: ALPRazoLAM 0.25 MG TABLET 1 MG PO (02:47)
[2025-01-21 02:56] LABS: Basophils % (Auto) 0 % (0-2.5); Eosinophils % (Auto) 0 % (0-10); Hematocrit 37.7 % (36.0-46.0); Immature Granulocytes % (Auto) 0 % (0-0); Immature Granulocytes Auto 0.05 Thou/mm3 (0.00-0.00); Lymphocytes # (Auto) 3.3 Thou/mm3 (1.0-4.8); Lymphocytes % (Auto) 26 % (10-50); Mean Corpuscular HGB Conc 34.5 g/dl (31.0-37.0); Mean Corpuscular Hemoglobin 28.5 pg (25.0-35.0); Mean Corpuscular Volume 83 fL (80-100); Monocytes # (Auto) 0.9 Thou/mm3 (0.0-0.8); Monocytes % (Auto) 7 % (0-12); Neutrophils # (Auto) 8.7 Thou/mm3 (1.8-7.7); Neutrophils % (Auto) 67 % (37-80); Nucleated Red Blood Cell % 0 /100 WBC (0); Platelet Count 196 Thou/mm3 (140-440); RDW Standard Deviation 39.3 fL (36.4-46.3); Red Blood Count 4.56 Miln/mm3 (4.00-5.20)
[2025-01-21 03:20] LABS: Alanine Aminotransferase 18 U/L (10-49); Albumin, Serum 4.5 gm/dL (3.5-5.0); Alkaline Phosphatase 95 U/L (46-116); Anion Gap 10 (7-16); BUN/Creatinine Ratio 17 Ratio (12-20); Bilirubin,Total 0.3 mg/dL (0.3-1.2); Blood Urea Nitrogen 10 mg/dL (9-23); Calcium 9.5 mg/dL (8.3-10.6); Calcium (Corrected) 9.5 mg/dL (8.5-10.1); Carbon Dioxide 24.9 mMol/L (20.0-31.0); Chloride 110 mMol/L (98-107); Creatinine (Component) 0.6 mg/dL (0.6-1.3); Estimated Creatinine Clearance 126.4 mL/min (>60); Free T4 (Free Thyroxine) 1.32 ng/dL (0.89-1.76); Globulin 2.3 gm/dL (2.3-3.5); Glucose 98 mg/dL (74-106); Magnesium 1.9 mg/dL (1.6-2.6); Osmolality,Calculated 287 (275-295); Potassium 3.3 mMol/L (3.4-5.1); Sodium 145 mMol/L (136-145); Thyroid Stimulating Hormone 7.36 uIU/mL (0.55-4.78); Total Protein 6.8 gm/dL (5.7-8.2); Troponin I < 0.002 ng/mL (0.0-0.045); eGFR > 60 See Note
[2025-01-21 04:00] VITALS: BP 130/73; PULSE 79; RESP 21; TEMP 36.9; O2SAT 98
--- NOTE | 2025-01-21 04:17 | PC.NURSE ---
CALLED HOUSE SUP TO BRING PO KCL
[2025-01-21] MEDS: POTASSIUM CHLORIDE 10% 20 MEQ/15 ML UDC 40 MEQ PO (04:31)
== END 2025-01-21 04:32 | disposition home or self-care (01) ==
PROVIDERS: Emergency Provider Emergency Medicine; PCP Physician Assistant Medical
DX: R00.2 Palpitations (principal); R00.0 Tachycardia, unspecified
CPT/HCPCS: 36415; 80053; 83735; 84439; 84443; 84484; 85025; 93005; 99283; A9270

== ENCOUNTER → 2025-03-13 | Outpatient (CLI) | payer MEDICAID, SELFPAY ==
--- NOTE | 2025-03-13 15:15 | XR_ITS ---
Examination: Abdomen sonogram, Limited Date and time of exam: March 13, 2025 1528 hours INDICATIONS: Palpable lump in the umbilical region noticed beginning 11 months ago Technique: Real-time evans scale transabdominal sonographic images of the upper abdomen obtained. Findings: 13 x 10 x 22 mm umbilical hernia IMPRESSION: 13 x 10 x 22 mm umbilical hernia
== END | disposition home or self-care (01) ==
PROVIDERS: Referring Provider Physician Assistant Medical; Visit Provider Physician Assistant Medical
DX: K42.9 Umbilical hernia without obstruction or gangrene (principal)
CPT/HCPCS: 76705